=== PATIENT | male | born 1940 | race Caucasian/White ===

== ENCOUNTER 2022-10-12 14:15 | Inpatient (IN) | payer BC, MEDICAID ==
[~2022-10-12] VITALS: Ht 162.6 cm; Wt 81.6 kg
[2022-10-12 14:57] LABS: BASOPHILS % 0.5 % (0.0-2.0); HEMATOCRIT. 34.5 % (42.0-52.0); HEMOGLOBIN. 11.8 g/dL (14.0-18.0); LYMPHOCYTES % 21.1 % (20.0-50.0); MEAN CORPUSCULAR HEMOGLOBIN 31.7 pg (28.0-32.0); MEAN CORPUSCULAR VOLUME 92.7 fL (80.0-94.0); MEAN PLATELET VOLUME 9.3 fl (7.4-10.4); NEUTROPHILS % 73.4 % (40.0-76.0); PLATELET 264 x1000/uL (130-400); RED BLOOD CELL COUNT 3.72 mill/uL (4.7-6.1); RED CELL DISTRIBUTION WIDTH 14.2 % (11.6-14.6)
[2022-10-12 15:02] LABS: CHLORIDE 103 mEq/L (98-107)
[2022-10-12 16:17] LABS: CLARITY URINE CLOUDY (CLEAR); COLOR URINE DARK YELLOW (YELLOW); KETONES URINE TRACE (NEGATIVE); LEUKOCYTE ESTERASE URINE 2+ (NEGATIVE); NITRITE URINE NEGATIVE (NEGATIVE); OCCULT BLOOD URINE NEGATIVE (NEGATIVE); PH URINE 5.5 (4.5-8.0); PROTEIN URINE 1+ (NEGATIVE); SPECIFIC GRAVITY URINE 1.026 (1.005-1.030)
[2022-10-12] MEDS ORDERED: FUROSEMIDE 40MG/4ML VIAL IVP ONE (17:45)
[2022-10-12] MEDS ORDERED: CEFTRIAXONE 1GM PREMIX 50 ML IV ONE (17:45)
[2022-10-12 18:00] LABS: INR 1.2; PROTHROMBIN TIME 13.1 sec (9.6-11.0)
[2022-10-12] MEDS ORDERED: POTASSIUM CHLORIDE 20MEQ TABLET SR PO ONE (18:00)
[2022-10-12] MEDS ORDERED: IPRATROPIUM/ALBUTEROL 0.5-3(2.5)MG/3ML NEB HHN PRN (22:00)
[2022-10-12] MEDS ORDERED: CLONIDINE 0.1MG TABLET PO PRN (22:00)
[2022-10-12] MEDS ORDERED: MAGNESIUM/ALUMINUM HYDROXIDE/SIMETHICONE 30ML UDC PO PRN (22:00)
[2022-10-12] MEDS ORDERED: DOCUSATE SODIUM 100MG CAPSULE PO PRN (22:00)
[2022-10-12] MEDS ORDERED: DEXTROSE 50% WATER 50ML SYRINGE IV PRN (22:00)
[2022-10-12] MEDS ORDERED: ACETAMINOPHEN 325MG TABLET PO PRN (22:00)
[2022-10-12] MEDS ORDERED: GUAIFENESIN 200MG/10ML SUGAR FREE UDC PO PRN (22:00)
[2022-10-12] MEDS ORDERED: ONDANSETRON HCL 4MG/2ML INJ IV PRN (22:00)
[2022-10-12] MEDS ORDERED: NALOXONE HCL 0.4MG/ML VIAL IV PRN (22:15)
[2022-10-12] MEDS: HYDROCODONE/ACETAMINOPHEN 5/325MG TABLET PO PRN (23:05)
[2022-10-13] MEDS ORDERED: DEXTROSE 50% WATER 50ML SYRINGE IV PRN (04:15)
[2022-10-13 05:08] VITALS: BP 147/81; PULSE 89; RESP 20; TEMP 98.2
[2022-10-13 05:28] VITALS: BP 147/81; PULSE 89; RESP 20; TEMP 98.2
[2022-10-13] MEDS ORDERED: BLOOD SUGAR DIAGNOSTIC STRIP TEST SCH (06:30)
[2022-10-13] MEDS ORDERED: INSULIN LISPRO 100 UNITS/ML SUBCUT SCH (07:00)
[2022-10-13] MEDS: BLOOD SUGAR DIAGNOSTIC STRIP TEST SCH ×4 (07:10→21:19)
[2022-10-13] MEDS: INSULIN LISPRO 100 UNITS/ML SUBCUT SCH ×4 (07:40→21:25)
[2022-10-13 08:00] VITALS: BP 108/66; PULSE 70; RESP 18; TEMP 97.7
[2022-10-13] MEDS ORDERED: POTASSIUM CHLORIDE 20MEQ TABLET SR PO NR (08:00)
[2022-10-13] MEDS: HYDROCODONE/ACETAMINOPHEN 5/325MG TABLET PO PRN (09:03)
[2022-10-13] MEDS: ENOXAPARIN 40MG/0.4ML SYR SUBCUT SCH (09:13)
[2022-10-13] MEDS: FUROSEMIDE 40MG/4ML VIAL IV SCH ×2 (09:19→17:14)
[2022-10-13] MEDS: PANTOPRAZOLE SODIUM 40 MG/VIAL IV SCH (09:19)
[2022-10-13 09:58] LABS: BASOPHILS % 0.4 % (0.0-2.0); EOSINOPHILS % 0.6 % (0.0-5.0); HEMATOCRIT. 37.8 % (42.0-52.0); HEMOGLOBIN. 12.6 g/dL (14.0-18.0); LYMPHOCYTES % 18.9 % (20.0-50.0); MEAN CORPUSCULAR HEMOGLOBIN 31.1 pg (28.0-32.0); MEAN CORPUSCULAR VOLUME 93.2 fL (80.0-94.0); MEAN PLATELET VOLUME 10.1 fl (7.4-10.4); MONOCYTES % 6.2 % (2.0-8.0); NEUTROPHILS % 73.9 % (40.0-76.0); PLATELET 272 x1000/uL (130-400); RED BLOOD CELL COUNT 4.05 mill/uL (4.7-6.1); RED CELL DISTRIBUTION WIDTH 14.3 % (11.6-14.6)
[2022-10-13 10:07] LABS: CHLORIDE 104 mEq/L (98-107)
[2022-10-13 10:20] LABS: HDL CHOLESTEROL 46 mg/dL (40-59); LDL CHOLESTEROL 16 mg/dL (5-100); T4 FREE 1.35 ng/dL (0.76-1.46); TOTAL IRON BINDING CAPACITY 220 ug/dL (250-450)
[2022-10-13] MEDS ORDERED: CEFTRIAXONE 1,000 MG in DEXTROSE 5% WATER 50 ML IV SCH (11:00)
[2022-10-13 12:00] VITALS: BP 157/84; PULSE 72; RESP 18; TEMP 97.8
[2022-10-13] MEDS: CEFTRIAXONE 1,000 MG in DEXTROSE 5% WATER 50 ML IV SCH (13:00)
[2022-10-13] MEDS: LEVOTHYROXINE SODIUM 25MCG TABLET PO SCH (13:56)
[2022-10-13] MEDS: CYANOCOBALAMIN 1000MCG/ML VIAL SUBCUT SCH (15:30)
[2022-10-13 16:00] VITALS: BP 118/88; PULSE 76; RESP 18; TEMP 97.7
[2022-10-13 17:48] LABS: CREATINE KINASE MB FRACTION 4.2 ng/mL (0.5-3.6)
[2022-10-13 19:11] LABS: HEPATITIS B SURFACE ANTIGEN NEGATIVE
[2022-10-13] MEDS ORDERED: CARV6.2548 PO (19:33)
[2022-10-13] MEDS ORDERED: FURO-152 PO (19:33)
[2022-10-13] MEDS ORDERED: LIP40 PO (19:33)
[2022-10-13] MEDS ORDERED: METF-873 PO (19:33)
[2022-10-13] MEDS ORDERED: ENAL-79 PO (19:33)
[2022-10-13] MEDS ORDERED: LIPA1CAP18 PO (19:33)
[2022-10-13] MEDS ORDERED: ASPI-1497 PO (19:33)
[2022-10-13 20:00] VITALS: BP 131/61; PULSE 85; RESP 18; TEMP 97.4
[2022-10-13] MEDS ORDERED: CEFTRIAXONE 1GM PREMIX 50 ML IV SCH (21:00)
[2022-10-14] VITALS: BP 129/80; PULSE 72; RESP 20; TEMP 97
[2022-10-14 00:08] LABS: CREATINE KINASE MB FRACTION 3.8 ng/mL (0.5-3.6)
[2022-10-14 04:00] VITALS: BP 113/82; PULSE 89; RESP 18; TEMP 97
[2022-10-14 05:24] LABS: BASOPHILS % 0.6 % (0.0-2.0); EOSINOPHILS % 0.4 % (0.0-5.0); HEMOGLOBIN. 11.9 g/dL (14.0-18.0); LYMPHOCYTES % 22.9 % (20.0-50.0); MEAN CORPUSCULAR HEMOGLOBIN 31.9 pg (28.0-32.0); MEAN CORPUSCULAR VOLUME 93.4 fL (80.0-94.0); MEAN PLATELET VOLUME 10.1 fl (7.4-10.4); MONOCYTES % 9.3 % (2.0-8.0); NEUTROPHILS % 66.8 % (40.0-76.0); PLATELET 55 x1000/uL (130-400); RED BLOOD CELL COUNT 3.75 mill/uL (4.7-6.1); RED CELL DISTRIBUTION WIDTH 14.2 % (11.6-14.6)
[2022-10-14 05:28] LABS: CHLORIDE 105 mEq/L (98-107)
[2022-10-14 05:36] LABS: CREATINE KINASE 91 IU/L (39-308); CREATINE KINASE MB FRACTION 2.8 ng/mL (0.5-3.6)
[2022-10-14] MEDS: LEVOTHYROXINE SODIUM 25MCG TABLET PO SCH (06:19)
[2022-10-14] MEDS: BLOOD SUGAR DIAGNOSTIC STRIP TEST SCH ×3 (06:22→17:10)
[2022-10-14] MEDS: INSULIN LISPRO 100 UNITS/ML SUBCUT SCH ×3 (06:22→17:40)
[2022-10-14] MEDS ORDERED: KCL 20MEQ/100ML PREMIX 100 ML IV SCH (07:30)
[2022-10-14 08:00] VITALS: BP 133/81; PULSE 79; RESP 20; TEMP 96.6
[2022-10-14] MEDS: ENOXAPARIN 40MG/0.4ML SYR SUBCUT SCH (09:00)
[2022-10-14] MEDS: CYANOCOBALAMIN 1000MCG/ML VIAL SUBCUT SCH (09:09)
[2022-10-14] MEDS: FUROSEMIDE 40MG/4ML VIAL IV SCH ×2 (09:59→17:00)
[2022-10-14] MEDS: PANTOPRAZOLE SODIUM 40 MG/VIAL IV SCH (09:59)
[2022-10-14 10:02] LABS: BASOPHILS % 0.3 % (0.0-2.0); EOSINOPHILS % 0.3 % (0.0-5.0); HEMATOCRIT. 36.2 % (42.0-52.0); LYMPHOCYTES % 15.2 % (20.0-50.0); MEAN CORPUSCULAR HEMOGLOBIN 30.9 pg (28.0-32.0); MEAN PLATELET VOLUME 10.3 fl (7.4-10.4); MONOCYTES % 8.1 % (2.0-8.0); NEUTROPHILS % 76.1 % (40.0-76.0); RED CELL DISTRIBUTION WIDTH 14.2 % (11.6-14.6)
[2022-10-14 10:15] LABS: PLATELET 236 x1000/uL (130-400)
[2022-10-14 10:23] LABS: CHLORIDE 102 mEq/L (98-107)
[2022-10-14] MEDS ORDERED: SODIUM BICARBONATE 4% (2.4MEQ) 5ML VIAL IV ONE (11:16)
[2022-10-14] MEDS ORDERED: LIDOCAINE HCL 1% 10 MG/ML 10ML VIAL ONE (11:16)
[2022-10-14] MEDS: CEFTRIAXONE 1,000 MG in DEXTROSE 5% WATER 50 ML IV SCH (13:00)
[2022-10-14] MEDS ORDERED: POTASSIUM CHLORIDE 20MEQ TABLET SR PO SCH (14:00)
[2022-10-14] MEDS ORDERED: FURO-151 MT ×2 (14:03→16:00)
[2022-10-14] MEDS ORDERED: SULF1TAB48 MT ×2 (14:03→16:00)
[2022-10-14] MEDS ORDERED: SPIR25TA MT ×2 (14:03→16:00)
[2022-10-14 16:00] VITALS: BP 144/78; PULSE 66; RESP 20; TEMP 97.6
[2022-10-14 16:25] VITALS: BP 131/75; PULSE 78; TEMP 97.6; O2SAT 97
[2022-10-16 04:12] LABS: OVA & PARASITE EXAM Final report (.)
== END 2022-10-14 17:35 | disposition home or self-care (01) | DRG 432 ==
LOC: ER 14:15 → MICUSO 21:46 → EDBEDREQTM 21:49 → EDBEDREQ 21:49 → SUPCPDRO 21:55 → 8WST 10-13 03:58
PROVIDERS: ADMIT Internal Medicine; ATTEND Internal Medicine
PROC: 0W9G3ZZ Drainage of Peritoneal Cavity, Percutaneous Approach (ICD-10-PCS; principal; 2022-10-14)
DX: K70.31 Alcoholic cirrhosis of liver with ascites (principal); E43 Unspecified severe protein-calorie malnutrition; E87.1 Hypo-osmolality and hyponatremia; I31.39 Other pericardial effusion (noninflammatory); K86.1 Other chronic pancreatitis; N39.0 Urinary tract infection, site not specified; J90 Pleural effusion, not elsewhere classified; K80.20 Calculus of gallbladder without cholecystitis without obstruction; D63.8 Anemia in other chronic diseases classified elsewhere; E03.9 Hypothyroidism, unspecified; E11.65 Type 2 diabetes mellitus with hyperglycemia; E53.8 Deficiency of other specified B group vitamins; E77.8 Other disorders of glycoprotein metabolism; E78.00 Pure hypercholesterolemia, unspecified; E87.6 Hypokalemia; F10.21 Alcohol dependence, in remission; F17.200 Nicotine dependence, unspecified, uncomplicated; R74.01 Elevation of levels of liver transaminase levels; E88.09 Other disorders of plasma-protein metabolism, not elsewhere classified; I11.0 Hypertensive heart disease with heart failure; I45.10 Unspecified right bundle-branch block; J43.9 Emphysema, unspecified; I50.9 Heart failure, unspecified; T50.1X5A Adverse effect of loop [high-ceiling] diuretics, initial encounter; Z83.3 Family history of diabetes mellitus; Z79.82 Long term (current) use of aspirin; Y92.89 Other specified places as the place of occurrence of the external cause; Z68.30 Body mass index [BMI] 30.0-30.9, adult
CPT/HCPCS: 36415; 49083; 71045; 74176; 76536; 76705; 80048; 80053; 80061; 81003; 82040; 82550; 82553; 82607; 82728; 82746; 82962; 83036; 83540; 83550; 83615; 83880; 84439; 84443; 84480; 84484; 85025; 85044; 85379; 86376; 86705; 86709; 86803; 87015; 87045; 87177; 87209; 87340; 87427; 87449; 87493; 88108; 89055; 93005; 93306; 93970; 97162; 97166; 99285; C9113; J0696; J1650; J1815; J1940; J3420; J3480; J3490; J7060